=== PATIENT | female | born 1995 | race Caucasian/White ===

== ENCOUNTER → 2017-04-04 | Outpatient (CLI) | payer OTHER ==
--- NOTE | 2017-04-04 12:15 | US ---
EXAMINATION TYPE: US gallbladder DATE OF EXAM: 04/04/2017 11:25 AM COMPARISON: None CLINICAL HISTORY: 21-year-old female with R10.84 Generalized abdominal pain. Epigastric pain, Nausea TECHNIQUE: Multiple sonographic images of the right upper quadrant are obtained. FINDINGS: Liver Length: 18.4 cm Gallbladder Wall: 0.2 cm CHD: 0.3 cm Right Kidney: 11.9 x 5.7 x 4.6 cm Pancreas: Suboptimal visualization of the pancreatic tail and a portion of the pancreatic body. Visu alized portions show no gross abnormality. Liver: Mildly enlarged with increased echogenicity. Gallbladder: No abnormal gallbladder distention, wall thickening, pericholecystic fluid, or shadowin g calculi. Evidence for sonographic Valle's sign: neg CHD: Within normal limits Right Kidney: No hydronephrosis IMPRESSION: Mild hepatomegaly and findings suggesting underlying hepatic steatosis. Correlate with LFTs, lipid pr ofile, and patient risk factors.
== END | disposition home or self-care (01) ==
LOC: RADUSWWP 10:41
PROVIDERS: ATTEND Family Medicine
DX: R16.0 Hepatomegaly, not elsewhere classified (principal)
CPT/HCPCS: 76705

== ENCOUNTER → 2017-04-25 | Outpatient (CLI) | payer OTHER ==
--- NOTE | 2017-04-25 09:07 | CT ---
EXAMINATION TYPE: CT abdomen pelvis w con DATE OF EXAM: 04/25/2017 8:52 AM HISTORY: Abdominal pain CT DLP: 959.70mGycm Automated Exposure Control for Dose Reduction was Utilized. CONTRAST: CT scan of the abdomen and pelvis is performed with IV Contrast, patient injected with 100 ml mL of O mnipaque 300. COMPARISON: CT abdomen and pelvis October 21, 2015 FINDINGS: LUNG BASES: No significant abnormality is appreciated. LIVER/GB: No significant abnormality is appreciated. PANCREAS: No significant abnormality is seen. SPLEEN: Spleen remains enlarged at 14.8 cm on long axis on coronal image 54. ADRENALS: No significant abnormality is seen. KIDNEYS: No significant abnormality is seen. BOWEL: The oral contrast reaches level of the right colon. There is no suspicious small or large rashaun l dilatation. Normal-appearing appendix is seen from the cecum. UTERUS/ADNEXA: No gross abnormality seen. LYMPH NODES: No greater than 1cm abdominal or pelvic lymph nodes are appreciated. OSSEOUS STRUCTURES: Slight underlying levoconvex scoliotic curvature in the lumbar spine is redemonst rated. OTHER: No significant additional abnormality is seen. IMPRESSION: No significant new or acute finding is seen to account for patient's clinical symptoms.
== END | disposition home or self-care (01) ==
LOC: RADCTMAIN 08:20
PROVIDERS: ATTEND Family Medicine
DX: R10.11 Right upper quadrant pain (principal); Z91.040 Latex allergy status; Z88.8 Allergy status to other drugs, medicaments and biological substances
CPT/HCPCS: 74177; Q9967